=== PATIENT | female | born 1980 | race Asian ===

== ENCOUNTER → 2017-06-11 16:52 | Outpatient (CLI) | payer OTHER | END | disposition home or self-care (01) | LOC: D.MAMMO 14:00 | DX: N64.4 Mastodynia (principal) ==

== ENCOUNTER → 2020-11-06 12:32 | Outpatient (CLI) | payer OTHER ==
[2020-10-03 09:41] VITALS: BMI 20.8
[~2020-11-06 12:32] MED LIST: BACTRIM DS TAB1 EAC1 PO; CELEXA40 MG PO; CIPRO500 MG PO; FAMOTIDINE10 MG PO; HYDROCHLOROTH12.5 M1 PO; HYDROCODON-ACE1 EA10 PO; LISINOPRIL10 MG PO; OMEPRAZOLE20 M1 PO; TIROSINT25 MCG PO
== END | disposition home or self-care (01) ==
LOC: D.RAD 12:32
PROVIDERS: ATTEND Nurse Practitioner Family
DX: J18.9 Pneumonia, unspecified organism (principal)